=== PATIENT | male | born 1985 | race Caucasian/White ===

== ENCOUNTER 2023-06-28 10:08 | Outpatient (CLI) | payer OTHER, SELFPAY ==
--- NOTE | 2023-06-28 10:15 | CRLHL7_ITS ---
For Patients: As a result of the Century Cures Act, medical imaging exams and procedure reports are released immediately into your electronic medical record. You may view this report before your referring provider. If you have questions, please contact your health care provider. INDICATION: Left-sided hearing loss. TECHNIQUE: Multiplanar multisequence MR imaging acquired through the brain and internal auditory canals prior to and following intravenous contrast. COMPARISON: None. FINDINGS: The ventricles and sulci are within normal limits for patient age. No mass effect or midline shift. No parenchymal signal abnormalities. No intracranial hemorrhage or pathologic extra-axial fluid collection. No diffusion restriction to suggest acute infarction. No pathologic intracranial enhancement. No mass or pathologic enhancement within the internal auditory canals or cerebellopontine angles. No concerning signal abnormalities in the inner ear structures. No vascular loop within the internal auditory canals. The major arterial flow voids of the skullbase are preserved. The globes are symmetric. Minimal paranasal sinus mucosal thickening. Small left and trace right mastoid effusions. IMPRESSION: 1. No intracranial abnormality. 2. Small left and trace right mastoid effusions. Dictated by Sergio Armstrong MD @ 06/28/2023 12:37:39 PM (Electronically Signed)
== END 2023-06-28 10:09 | disposition home or self-care (01) ==
LOC: MRI 10:10
PROVIDERS: PCP Physician Assistant Medical; Visit Provider Physician Assistant Medical
DX: H91.92 Unspecified hearing loss, left ear (principal)
CPT/HCPCS: 70553; A9575

== ENCOUNTER 2023-07-21 08:33 | Outpatient (CLI) | payer OTHER, SELFPAY | END 2023-07-21 08:34 | disposition home or self-care (01) | PROVIDERS: PCP Physician Assistant Medical; Visit Provider Physician Assistant Medical | DX: Z13.220 Encounter for screening for lipoid disorders (principal); R79.89 Other specified abnormal findings of blood chemistry | CPT/HCPCS: 80053; 80061; 86703; 86803 ==

== ENCOUNTER 2024-05-23 13:57 | Outpatient (CLI) | payer OTHER, SELFPAY ==
--- NOTE | 2024-05-23 14:30 | CRLHL7_ITS ---
For Patients: As a result of the Century Cures Act, medical imaging exams and procedure reports are released immediately into your electronic medical record. You may view this report before your referring provider. If you have questions, please contact your health care provider. INDICATION: Low back pain. TECHNIQUE: Sagittal and axial T1, sagittal and axial T2 and sagittal STIR images. FINDINGS: The sagittal alignment within normal limits. No compression fractures. There is mild multilevel spondylosis with small Schmorl`s node endplate changes through the lumbar and lower thoracic endplates. The conus medullaris appears normal and terminates normally at L1. No posterior disc herniation or stenosis at T11-12, T12-L1, L1-2 or L2-3 levels. At L3-4 there is degenerative disc desiccation there is mild central posterior annular bulge without stenosis of the spinal canal or neural foramen. At L4-5 degenerative disc desiccation. Mild posterior annular bulging without stenosis of the spinal canal or neural foramen. At L5-S1 degenerative disc desiccation. Modic type 1 endplate signal changes mild posterior annular bulge slightly to the right of midline without stenosis of the spinal canal or significant neural foraminal narrowing. The included portions of the sacroiliac joints are unremarkable. IMPRESSION: 1. Mild degenerative disc change and mild annular bulging at the L3-4, L4-5 and L5-S1 levels. Schmorl`s node endplate changes. 2. No high-grade central or lateral stenosis at any lumbar level. Dictated by Dawson Garrett MD @ 05/24/2024 9:55:55 AM (Electronically Signed)
== END 2024-05-23 13:58 | disposition home or self-care (01) ==
LOC: MRI 13:58
PROVIDERS: PCP Physician Assistant Medical; Visit Provider Physician Assistant Medical
DX: M54.50 Low back pain, unspecified (principal); M51.369 Other intervertebral disc degeneration, lumbar region without mention of lumbar back pain or lower extremity pain; G89.29 Other chronic pain
CPT/HCPCS: 72148